=== PATIENT | female | born 2005 | race Two or more races ===

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

== ENCOUNTER 2025-06-05 22:33 | Emergency (ER) | payer BC ==
[2025-06-05 22:48] LABS: GLUCOSE,URINE NORMAL (NORMAL); OCCULT BLOOD,URINE NEGATIVE (NEGATIVE)
[2025-06-05 22:50] LABS: APPEARANCE,URINE CLEAR (CLEAR)
== END 2025-06-05 23:30 | disposition home or self-care (01) ==
LOC: FB.ED 22:33
DX: N23 Unspecified renal colic (principal)
CPT/HCPCS: 81003; 99282; 99283